=== PATIENT | male | born 1945 | race Caucasian/White ===

== ENCOUNTER 2020-12-02 11:46 | Day surgery (SDC) | payer OTHER ==
[2020-11-27 09:45] LABS: BASOPHILS % (AUTO) 0.7 % (0-1); EOSINOPHILS # (AUTO) 0.1 X10'3 (0-0.9); EOSINOPHILS % (AUTO) 2.3 % (0-6); HEMATOCRIT 39.4 % (42.0-52.0); HEMOGLOBIN 12.4 g/dl (14.0-17.9); LYMPHOCYTES # (AUTO) 1.3 X10'3 (1.1-4.8); LYMPHOCYTES % (AUTO) 22.7 % (21-51); MEAN CORPUSCULAR HEMOGLOBIN 27.3 PG (27.0-31.0); MEAN CORPUSCULAR HGB CONC 31.5 g/dL (33.0-36.5); MEAN CORPUSCULAR VOLUME 86.5 FL (78-98); MONOCYTES # (AUTO) 0.7 X10'3 (0-0.9); MONOCYTES % (AUTO) 11.9 % (2-12); NEUTROPHILS # (AUTO) 3.6 X10'3 (1.8-7.7); NEUTROPHILS % (AUTO) 62.4 % (42-75); PLATELET COUNT 149 X10'3 (140-440); RED BLOOD COUNT 4.55 X10'6 (4.70-6.10); RED CELL DISTRIBUTION WIDTH 17.3 % (11.5-14.5); WHITE BLOOD COUNT 5.7 X10'3 (4.5-11.0)
[2020-11-27 09:49] LABS: ALBUMIN 3.6 G/DL (3.4-5.0); ANION GAP 6 (8-16); BLOOD UREA NITROGEN 27 MG/DL (7-18); BUN/CREATININE RATIO 17.5 (5.4-32.0); CALCIUM 8.9 MG/DL (8.5-10.1); CHLORIDE 105 MMOL/L (99-107); CREATININE 1.54 MG/DL (0.60-1.10); GLUCOSE 184 MG/DL (70-104); POTASSIUM 4.1 MMOL/L (3.5-5.1); SODIUM 142 MMOL/L (135-145); TOTAL CARBON DIOXIDE 31.3 MMOL/L (24-32); eGFR 44 ML/MIN
[2020-11-27 09:53] LABS: PARTIAL THROMBOPLASTIN TIME 27 SECONDS (22-32)
[~2020-12-02] VITALS: Ht 172.7 cm; Wt 159.4 kg
[2020-12-02] VITALS (11 sets, daily range): BP systolic 106–167; BP diastolic 43–95
[2020-12-02] MEDS ORDERED: LIDOcaine/PRILOcaine 5gm cream TP ONE (12:15)
[2020-12-02] MEDS ORDERED: diphenhydrAMINE 25mg capsule PO PRN (12:15)
[2020-12-02] MEDS ORDERED: LORazepam 0.5 MG tablet PO PRN (12:15)
[2020-12-02] MEDS ORDERED: normal saline 1,000 ML IV SCH (12:15)
[2020-12-02] MEDS ORDERED: CHOL100017 PO (12:28)
[2020-12-02] MEDS ORDERED: CALC-157 PO (12:28)
[2020-12-02] MEDS ORDERED: GABA300C PO (12:28)
[2020-12-02] MEDS ORDERED: METO-395 PO (12:28)
[2020-12-02] MEDS ORDERED: ASPI-1265 PO (12:28)
[2020-12-02] MEDS ORDERED: SIMV-42 PO (12:28)
[2020-12-02] MEDS ORDERED: LOSA100T57 PO (12:28)
[2020-12-02] MEDS ORDERED: METF-438 PO (12:28)
[2020-12-02] MEDS ORDERED: ALOG25TA2 PO (12:28)
[2020-12-02] MEDS ORDERED: LIDOcaine 1% (10mg/ml)w/preservative injection 20ml MDV ONE (13:16)
[2020-12-02] MEDS ORDERED: nitroGLYCERIN-Tridil 50MG/D5W 250 ML IV ONE (13:16)
[2020-12-02] MEDS ORDERED: verapamil 2.5 mg/ml inj IV ONE (13:16)
[2020-12-02] MEDS ORDERED: heparin 1,000unit/ml 10ml vial 10 ML ONE (13:16)
[2020-12-02] MEDS ORDERED: fentaNYL/PF 50MCG/1 ML 2ML syringe ONE (13:16)
[2020-12-02] MEDS ORDERED: midazolam 1 mg/ML 2ml injection ONE (13:16)
[2020-12-02] MEDS ORDERED: iohexol 350MG/ML 100ml bottle IV ONE (13:17)
== END 2020-12-02 17:05 | disposition home or self-care (01) ==
LOC: SSTAY O 11:46
PROVIDERS: ATTEND Internal Medicine Interventional Cardiology
DX: R94.39 Abnormal result of other cardiovascular function study (principal); R07.9 Chest pain, unspecified; I25.10 Atherosclerotic heart disease of native coronary artery without angina pectoris; I10 Essential (primary) hypertension; E78.5 Hyperlipidemia, unspecified; E11.40 Type 2 diabetes mellitus with diabetic neuropathy, unspecified; E11.59 Type 2 diabetes mellitus with other circulatory complications; Z79.01 Long term (current) use of anticoagulants; Z79.899 Other long term (current) drug therapy; Z79.82 Long term (current) use of aspirin; Z98.890 Other specified postprocedural states; Z72.89 Other problems related to lifestyle; Z90.79 Acquired absence of other genital organ(s); Z83.3 Family history of diabetes mellitus; Z82.49 Family history of ischemic heart disease and other diseases of the circulatory system
CPT/HCPCS: 36415; 80048; 82948; 85025; 85610; 85730; 93005; 93458; 99152; C1769; C1894; J1644; J2001; J2250; J3010; J7030; Q0163; Q9967; A4620; A5120; J3490

== ENCOUNTER 2021-02-13 08:57 | Emergency (ER) | payer OTHER, MEDICARE, BC ==
[~2021-02-13] VITALS: Ht 172.7 cm; Wt 149.0 kg
[~2021-02-13 08:57] MED LIST: ALOG25TA2 PO; ASPI-1265 PO; CALC-157 PO; CHOL100017 PO; GABA300C PO; LOSA100T57 PO; METF-438 PO; METO-395 PO; SIMV-42 PO
[2021-02-13 09:02] VITALS: BP 169/74
[2021-02-13] MEDS ORDERED: apixaban 5mg tablet PO STA (10:23)
[2021-02-13] MEDS ORDERED: APIX5TAB3 PO (10:27)
== END 2021-02-13 11:22 | disposition home or self-care (01) ==
LOC: ER 08:57
DX: I82.432 Acute embolism and thrombosis of left popliteal vein (principal); R60.0 Localized edema; M79.605 Pain in left leg; M79.652 Pain in left thigh; I10 Essential (primary) hypertension; E11.9 Type 2 diabetes mellitus without complications; Z79.82 Long term (current) use of aspirin; Z79.899 Other long term (current) drug therapy
CPT/HCPCS: 93971; 99284